=== PATIENT | female | born 2005 | race Caucasian/White ===

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

== ENCOUNTER → 2023-01-27 10:17 | Outpatient (BNVA) | payer BC, MEDICAID, SELFPAY | PROVIDERS: PCP Nurse Practitioner Women's Health; Visit Provider Obstetrics & Gynecology | DX: Z34.00 Encounter for supervision of normal first pregnancy, unspecified trimester (principal) | CPT/HCPCS: 81000 ==

== ENCOUNTER → 2023-02-11 10:04 | Outpatient (BNVA) | payer SELFPAY | PROVIDERS: PCP Nurse Practitioner Women's Health; Visit Provider Obstetrics & Gynecology | DX: Z34.00 Encounter for supervision of normal first pregnancy, unspecified trimester (principal) | CPT/HCPCS: 81000; 85025 ==

== ENCOUNTER → 2023-02-25 09:54 | Outpatient (BNVA) | payer SELFPAY | PROVIDERS: PCP Nurse Practitioner Women's Health; Visit Provider Obstetrics & Gynecology | DX: Z34.00 Encounter for supervision of normal first pregnancy, unspecified trimester (principal) | CPT/HCPCS: 81000 ==

== ENCOUNTER → 2023-03-11 10:03 | Outpatient (BNVA) | payer SELFPAY | PROVIDERS: PCP Nurse Practitioner Women's Health; Visit Provider Nurse Practitioner Women's Health | DX: Z34.00 Encounter for supervision of normal first pregnancy, unspecified trimester (principal) | CPT/HCPCS: 81000 ==

== ENCOUNTER 2023-03-15 22:32 | Outpatient (CLI) | payer MEDICAID, SELFPAY ==
[2023-03-15 22:20] VITALS: BMI 24.7
[2023-03-15 22:38] VITALS: BP 129/76; PULSE 126
[2023-03-15 23:08] VITALS: RESP 14
[2023-03-15 23:38] LABS: Bilirubin Urine Neg (Negative); Blood Urine Neg (Negative); Glucose Urine UA Norm (Normal); Ketones Urine Negative (Negative); Nitrate Urine Negative (Negative); Protein Urine Neg (Negative); Urine Appearance Hazy (CLEAR); Urine Color Yellow (Yellow); pH Urine 6 (5-7)
[2023-03-15 23:39] LABS: Bacteria Urine 1+ /hpf; Leukocyte Esterase Urine 2+ (Negative); RBC Urine 0-4 /hpf (0-2); Squamous Epithelial Cell Urine 15-25 /hpf (0-5); Urobilinogen Urine 1 mg/dL (Negative); WBC Urine 25-40 /hpf (0-5)
[2023-03-15 23:40] LABS: Add Urine Culture? No
[2023-03-16 00:13] VITALS: BP 105/59; PULSE 104
[2023-03-16 00:28] VITALS: BP 131/78; PULSE 106
[2023-03-16 00:35] VITALS: BP 131/78; PULSE 106; RESP 14; TEMP 36.4
== END 2023-03-16 00:30 | disposition home or self-care (01) ==
LOC: OPOB 22:33 → OBGYN 22:34
PROVIDERS: PCP Nurse Practitioner Women's Health; Visit Provider Obstetrics & Gynecology
DX: O26.899 Other specified pregnancy related conditions, unspecified trimester (principal); Z3A.00 Weeks of gestation of pregnancy not specified; M54.9 Dorsalgia, unspecified
CPT/HCPCS: 59025; 81001; 99211

== ENCOUNTER → 2023-03-25 08:30 | Outpatient (BNVA) | payer MEDICAID, SELFPAY | PROVIDERS: PCP Nurse Practitioner Women's Health; Visit Provider Obstetrics & Gynecology | DX: Z34.00 Encounter for supervision of normal first pregnancy, unspecified trimester (principal) | CPT/HCPCS: 81000; 87081 ==

== ENCOUNTER 2023-03-28 06:54 | Outpatient (CLI) | payer MEDICAID, SELFPAY ==
[2023-03-28 06:47] VITALS: BMI 25.0
[2023-03-28 07:18] VITALS: RESP 17
[2023-03-28 07:32] VITALS: BP 125/80; PULSE 97
[2023-03-28 07:48] VITALS: BP 119/71; PULSE 93
--- NOTE | 2023-03-28 09:14 | P.TNLD_ITS ---
OB L&D Triage Visit Information: Date of evaluation: 03/28/23 Comments/Additional reason(s) for visit: 17-year-old female at 36.4 weeks gestation and with complaints of contractions x1 hour. Patient denies leakage of fluid or vaginal bleeding. In review of her course it has been uneventful. EFM?category 1 Cervical exam?cervix 1/50%/-3 vertex unchanged after observation. Reviewed with patient through nursing staff contractions and labor, re turn to labor and delivery of leakage of fluid or vaginal bleeding or decreased movement. If pain increases with contractions more regular patient is to return to labor and delivery. Patient to keep her scheduled visit with her attending OB. Evaluation: monitor accelerations: Present 15x15 station: -3 Vital signs: Vital Signs - 24 hr 03/28/23 07:18 03/28/23 07:32 03/28/23 07:48 Pulse Rate 97 93 Respiratory Rate 17 Blood Pressure 125/80 119/71 Oxygen Delivery Me thod Room Air 03/28/23 07:18 Pulse Rate Respiratory Rate 17 Blood Pressure Oxygen Delivery Me thod Care ANGELA Calculator Estimated Delivery Date Method Current WG Current Estimate 04/21/23 LMP (Uncertain) 36w 4d Specific Issues/Plans * IRREGULAR CYCLES -- dating scan on 08/27/22-----> THIS WILL DATE THE * EATING DISORDER * ANXIETY/DEPRESSION--restarted Zoloft 50 mg at 16 weeks * LOW BMI Final Diagnosis Final Diagnosis (1) Irregular uterine contractions: Plan: Discharge patient to home, follow-up as scheduled with OB attending. Status: Acute Code(s): O47.9 - False labor, unspecified (2) with 36 completed weeks gestation: Status: Acute Code(s): Z3A.36 - 36 weeks gestation of Coding Level of Care Code Acute Code for Chg Fwd Diagnoses Irregular uterine contractions O47.9 with 36 completed weeks gestation Z3A.36
== END 2023-03-28 09:15 | disposition home or self-care (01) ==
LOC: OPOB 06:54 → OBGYN 06:55
PROVIDERS: PCP Nurse Practitioner Women's Health; Visit Provider Obstetrics & Gynecology
DX: O47.9 False labor, unspecified (principal); Z3A.36 36 weeks gestation of pregnancy
CPT/HCPCS: 59025; 99211

== ENCOUNTER → 2023-04-01 07:55 | Outpatient (BNVA) | payer MEDICAID, SELFPAY | PROVIDERS: PCP Nurse Practitioner Women's Health; Visit Provider Nurse Practitioner Women's Health | DX: Z34.00 Encounter for supervision of normal first pregnancy, unspecified trimester (principal) | CPT/HCPCS: 84315 ==

== ENCOUNTER → 2023-04-07 14:06 | Outpatient (BNVA) | payer BC, MEDICAID, SELFPAY | PROVIDERS: PCP Nurse Practitioner Women's Health; Visit Provider Nurse Practitioner Women's Health | DX: Z34.00 Encounter for supervision of normal first pregnancy, unspecified trimester (principal); F32.4 Major depressive disorder, single episode, in partial remission; F41.1 Generalized anxiety disorder; F41.0 Panic disorder [episodic paroxysmal anxiety]; F50.01 Anorexia nervosa, restricting type | CPT/HCPCS: 81000 ==

== ENCOUNTER 2023-04-09 00:29 | Inpatient (IN) | payer MEDICAID, SELFPAY ==
[2023-04-08] VITALS (16 sets, daily range): BP systolic 108–144; BP diastolic 67–92; PULSE 90–129; TEMP 36.1; O2SAT 97–98; BMI 25.7
[2023-04-09] VITALS (90 sets, daily range): BP systolic 99–164; BP diastolic 55–95; PULSE 83–133; RESP 15–16; TEMP 36.6–37.7; O2SAT 97
--- NOTE | 2023-04-09 01:10 | PM.OBGYHP ---
Providers/Chief Complaint Admitting Physician: Sunny Weiss MD Primary WARP TYING MACHINE KNOTTER: Larry Haji MD Primary Care Provider: IVAN [place] Chief Complaint: contractions HPI WARP TYING MACHINE KNOTTER History of Present Illness 17 y.o. G1 EDC 2022 At 38 w 2 d No complications Presented to L&D c/o painful UCs + active movements No bleeding or fluid leakage Present Details : 1 Para: 0 Labs Rubella: Immune RPR: Negative GBS: Negative Medications/Allergies Home Medications Medication Instructions Recorded Confirmed Last Taken Type PNV 153-FA 400 mcg-om3 35 mg-dha 1 tab PO DAILY 08/25/22 04/07/23 Unknown History 25 mg-epa 5 mg-fish oil chew tablet ( Gummies) ferrous sulfate 325 mg (65 mg 325 mg PO DAILY 12/31/22 04/07/23 Unknown History iron) tablet metoclopramide HCl 5 mg tablet 5 mg PO Q8H PRN heartburn #30 tabs 03/14/23 04/07/23 Unknown Rx (Reglan) Allergies Allergy/AdvReac Type Severity Reaction Status Date / Time No Known Allergies Allergy Verified 04/07/23 14:17 PFSH WARP TYING MACHINE KNOTTER PFSH: Medical History No pertinent past medical history neg dx: htn,dm,dvt/pe, thyroid PCP: None Surgical History No pertinent past surgical history Family History Grandmother Hypertension maternal Colon cancer age of dx 39, age of 40 Grandfather Hypertension maternal Stroke Denies family history of Ovarian cancer Diabetes Clotting disorder Bleeding disorder Uterine cancer Thyroid disease History History History 1 Term 0 Miscarriages/Ectopic Living Children Care ANGELA Calculator Estimated Delivery Date Method Current WG Current Estimate 04/21/23 LMP (Uncertain) 38w 2d Specific Issues/Plans IRREGULAR CYCLES -- dating scan on 08/27/22-----> THIS WILL DATE THE EATING DISORDER ANXIETY/DEPRESSION--restarted Zoloft 50 mg at 16 weeks LOW BMI Vitals/I&O/Wt Last Vital Signs Temp 98.1 F 04/09/23 04:00 Pulse 96 04/09/23 03:49 Resp 15 04/09/23 04:00 BP 116/66 04/09/23 03:49 Pulse Ox 98 04/08/23 22:53 O2 Del Method Room Air 04/09/23 04:00 Weight last 48 hrs Weight 145 lb Physical Exam Narrative: Weight 145 lbs; 5?3? VS normal FH 36 cm Cx: 3 cm / 100% / -2 / Vtx External monitor: regular [facility] heart tracing good variability, + accelerations Data 04/09/23 00:52 A&P Assessment and plan (1) Active labor at term: 38 w 2 d Active labor Plan admit Fetus reassuring Plan expectant management Attestations Medical Necessity Statement*: patient at 38 w 2 d with active labor Coding Level of Care Code Acute Code for Chg Fwd Diagnoses Active labor at term Time Spent (min) 60
[2023-04-09 01:34] LABS: Basophils # 0.1 10^3/uL (0.0-0.1); Basophils % 0.3 %; Eosinophils # 0.1 10^3/uL (0.0-0.8); Eosinophils % 0.3 %; Hematocrit 34.3 % (36-47); Lymphocytes # 2.1 10^3/uL (1.5-6.5); Mean Corpuscular HGB Conc 33.5 g/dL (30-55); Mean Corpuscular Hemoglobin 31.3 pg (27-33); Mean Corpuscular Volume 93.5 fl (85-98); Mean Platelet Volume 12.1 fL (7.4-10.4); Monocytes # 1.4 10^3/uL (0.2-0.9); Monocytes % 8.3 %; Neutrophils # 13.47 10^3/uL (1.8-8.0); Neutrophils % 78.3 %; Nucleated Red Blood Cells % 0 %; Platelet Count 280 10^3/cmm (157-399); Red Blood Count 3.67 10^6/uL (3.85-5.65); Red Cell Distribution Width 12.7 % (12.1-15.1)
[2023-04-09] MEDS: lactated ringers 1,000 ML 999 ML IV (06:41)
[2023-04-09] MEDS: ROPivacaine syringe 100 MG/50 ML SYRINGE 10 MG EPIDURAL ×4 (07:34→18:27)
[2023-04-09] MEDS: dextrose 5%-lactated ringers 1,000 ML 125 ML IV ×2 (07:44→15:48)
--- NOTE | 2023-04-09 08:18 | ANES.PREANE2 ---
Pre-Anesthetic Assessment Height/Weight: Height 1.6 m Weight 65.771 kg Temp Pulse Resp BP Pulse Ox O2 Del Method 97.9 F 102 H 15 113/71 97 Room Air 04/09/23 06:29 04/09/23 08:15 04/09/23 04:00 04/09/23 08:15 04/09/23 07:18 04/09/23 04:00 Epidural Familial anesthetic complications: None Was Beta Rain taken within 24 hours: N/A Was Clonidine taken within 24 hours: N/A Social No alcohol and No tobacco Exam alert, oriented x 3, clear to auscultation bilaterally and regular rate & rhythm Airway Mallampati: Class I Dentition: full Anesthetic Plan ASA status: 2 Anesthesia: Regional (specify below) Risk of > 500 ml blood loss (7ml/kg in children): No Medications/Allergies Home Medications Medication Instructions Recorded Confirmed Last Taken Type PNV 153-FA 400 mcg-om3 35 mg-dha 1 tab PO DAILY 08/25/22 04/07/23 Unknown History 25 mg-epa 5 mg-fish oil chew tablet ( Gummies) ferrous sulfate 325 mg (65 mg 325 mg PO DAILY 12/31/22 04/07/23 Unknown History iron) tablet metoclopramide HCl 5 mg tablet 5 mg PO Q8H PRN heartburn #30 tabs 03/14/23 04/07/23 Unknown Rx (Reglan) Allergies Allergy/AdvReac Type Severity Reaction Status Date / Time No Known Allergies Allergy Verified 04/07/23 14:17 Current Medications Generic Name Dose Route Start Last Admin Trade Name Freq PRN Reason Stop Dose Admin Dextrose/Lactated Ringer's 1,000 mls @ 125 mls/hr 04/09/23 01:00 04/09/23 07:44 Dextrose 5%-Lactated Ringers IV 125 mls/hr .Q8H CHAD Administration Lactated Ringer's 1,000 mls @ 999 mls/hr 04/09/23 06:30 04/09/23 06:41 Lactated Ringers IV 999 mls/hr .Q1H1M PRN Administration See label comments Ropivacaine 100 mg in 50 mls @ 10 mls/hr 04/09/23 06:30 04/09/23 07:34 Naropin Syringe EPIDURAL 10 mls/hr .Q5H CHAD Administration PFSH Anesthesia Medical History No pertinent past medical history neg dx: htn,dm,dvt/pe, thyroid PCP: None Surgical History No pertinent past surgical history Family History Grandmother Hypertension maternal Colon cancer age of dx 39, age of 40 Grandfather Hypertension maternal Stroke Denies family history of Ovarian cancer Diabetes Clotting disorder Bleeding disorder Uterine cancer Thyroid disease Female Reproductive History : 1 Data Anesthesia 04/09/23 00:52 Short CBC 04/09/23 Range/Units 00:52 WBC 17.20 H (4.5-13.0) 10^3/uL Hgb 11.50 L (12.4-14.8) g/dL Hct 34.3 L (36-47) % MCV 93.5 (85-98) fl Plt Count 280 (157-399) 10^3/cmm Neut % (Auto) 78.3 % Neut # (Auto) 13.47 H (1.8-8.0) 10^3/uL Cardiac Studies: No Data to Display
--- NOTE | 2023-04-09 08:19 | ANES.PROC ---
Anesthesia Procedures Procedure/Date: 04/09/23 Epidural: Time Out Performed: Yes Consents Signed: Procedure Consent Consent: requested by attending/covering physician, from patient, from other, risks and benefits reviewed and patient agrees to proceed Lumbar Level: L2-L3 Epidural position: sitting Epidural procedure: sterile prep of area, 1% lidocaine to numb the area, 18 g needle, negative for paresthesia passed, neg for paresthesia, test dose given, 1.5% xylocaine 1:200k epi (5), 0.2% Ropivacaine bolus ml (5), placed PCEA, no systemic response, sterile dressing applied, L.U.D. no apparent complications and 0.2% Ropiavacaine @ mls/hr (10) Additional Comments: CAMERON at 4 cm, threaded to 11 cm
[2023-04-09] MEDS: oxytocin 30 UNIT/500 ML BAG IV (11:10)
--- NOTE | 2023-04-09 17:36 | P.ANES_ITS ---
Anesthesia Procedures Procedure/Date: 04/09/23 Other Information: PLANNING ASSISTANT at bedside at 1735. bolus given viz epidural of 100mcg fentanyl and 4ml 0.25% bupivacaine at 1736. contractions easing up per patient.
--- NOTE | 2023-04-09 17:36 | ANES.PROC ---
Anesthesia Procedures Procedure/Date: 04/09/23 Other Information: VEHICLE OPERATOR TECHNICIAN at bedside at 1735. bolus given viz epidural of 100mcg fentanyl and 4ml 0.25% bupivacaine at 1736. contractions easing up per patient.
--- NOTE | 2023-04-09 19:40 | PM.OBGYPN ---
GRID CASTING MACHINE OPERATOR HELPER Subjective Subjective: Interval history: April 09, 2023, 194 Fetus reassuring Comfortable with epidural Cx: 7 cm / 90 % / +1 Labor: Station: +2 Amniotic Membrane Status: Ruptured Monitor Mode: External Contraction Pattern: Regular Vitals/I&O/Wt Last Vital Signs Temp 98.0 F 04/10/23 15:30 Pulse 93 04/10/23 15:30 Resp 16 04/10/23 15:30 BP 113/78 04/10/23 15:30 Pulse Ox 97 04/09/23 07:18 O2 Del Method Room Air 04/10/23 15:30 04/10/23 04/10/23 04/10/23 06:59 14:59 22:59 Output Total 650 / 750 Balance -650 / 403.000 Physical Exam Urinary Catheter Management: Chu Latex: Cath Placed During This Visit: yes, but has since been removed by the nurse Reason for Continuing Indwelling Catheter: Decision to DC Catheter Urinary Catheter Date of Insertion: 04/09/23 Urinary Catheter Time of Insertion: 08:12 Date Urinary Catheter Removed: 04/10/23 Time Urinary Catheter Discontinued: 20:58 Data 04/10/23 10:02 A&P Assessment and plan (1) Active labor at term: Attestations Medical Necessity Statement*: patient at 38 w 2 d, with active labor Coding Level of Care Code Acute Code for Chg Fwd Diagnoses Active labor at term Time Spent (min) 20
--- NOTE | 2023-04-09 20:02 | P.ANES_ITS ---
Anesthesia Procedures Procedure/Date: 04/09/23 Other Information: This CUTTER OPERATOR HELPER at bedside again at 1999. pt got relief from previous bolus for about 2 hours. hotspot still on patients left side, hip area. dosed epidural with 5ml of 2% lidocaine at 1999 and 2004 for a total of 10 ml.
--- NOTE | 2023-04-09 21:40 | P.PN_ITS ---
COMMUNICATION PROFESSOR Subjective Subjective: Interval history: April 09, 2023, 2139 DELIVERY NOTE , vigorous male infant Cord gases and blood obtained Normal placenta and cord Small 2 cm second-degree perineal laceration repaired EBL: 300 cc No complications Labor: Station: +2 Amniotic Membrane Status: Ruptured Monitor Mode: External Contraction Pattern: Regular Vitals/I&O/Wt Last Vital Signs Temp 98.0 F 04/10/23 15:30 Pulse 93 04/10/23 15:30 Resp 16 04/10/23 15:30 BP 113/78 04/10/23 15:30 Pulse Ox 97 04/09/23 07:18 O2 Del Method Room Air 04/10/23 15:30 04/10/23 04/10/23 04/10/23 06:59 14:59 22:59 Output Total 650 / 750 Balance -650 / 403.000 Physical Exam Urinary Catheter Management: Chu Latex: Cath Placed During This Visit: yes, but has since been removed by the nurse Reason for Continuing Indwelling Catheter: Decision to DC Catheter Urinary Catheter Date of Insertion: 04/09/23 Urinary Catheter Time of Insertion: 08:12 Date Urinary Catheter Removed: 04/10/23 Time Urinary Catheter Discontinued: 20:58 Data 04/10/23 10:02 A&P Assessment and plan (1) Vaginal delivery: Attestations Medical Necessity Statement*: patient at 38 weeks, s/p vaginal delivery Coding Level of Care Code Acute Code for Chg Fwd Diagnoses Vaginal delivery O80 Time Spent (min) 60
--- NOTE | 2023-04-09 21:40 | PM.DELIVERY ---
Delivery Note: Date of delivery: April 09, 2023 Pre-delivery diagnoses: 38 w 2 d active labor Post-delivery diagnoses: vaginal delivery second-degree perineal laceration Procedure: pitocin augmentation vaginal delivery repair of second-degree perineal laceration Op report anesthesia: Epidural Delivering Physician: Sunny Weiss MD Estimated blood loss (mL): 300 Findings: , vigorous male Cord gases and blood obtained Normal placenta and cord Small 2 cm second-degree perineal laceration repaired EBL: 300 cc No complications Delivery: vaginal delivery Post-Delivery Status: stable History History History 1 Term 0 Miscarriages/Ectopic Living Children A&P Assessment and plan (1) Vaginal delivery: plan care Coding Level of Care Code Acute Code for Chg Fwd Diagnoses Vaginal delivery O80 Time Spent (min) 60
[2023-04-09] MEDS: ibuprofen 800 mg tablet PO (22:12)
[2023-04-10] VITALS (12 sets, daily range): BP systolic 112–131; BP diastolic 55–87; PULSE 87–122; RESP 16–18; TEMP 36.7–37.4; O2SAT 97
[2023-04-10] MEDS: benzocaine-menthol 78 gm Canister 1 SPRAY TOPICAL (01:32)
[2023-04-10] MEDS: lanolin oint 7 gm 1 APPLIC TOPICAL (01:32)
[2023-04-10] MEDS: docusate sodium 100 mg Capsule PO ×2 (09:59→20:23)
[2023-04-10] MEDS: ibuprofen 800 mg tablet PO ×3 (10:00→20:23)
[2023-04-10] MEDS: prenatal vitamin Capsule 1 CAP PO (10:00)
[2023-04-10 10:25] LABS: Hematocrit 32.8 % (36-47); Mean Corpuscular Hemoglobin 30.7 pg (27-33); Mean Corpuscular Volume 95.9 fl (85-98); Mean Platelet Volume 11.6 fL (7.4-10.4); Platelet Count 262 10^3/cmm (157-399); Red Blood Count 3.42 10^6/uL (3.85-5.65); Red Cell Distribution Width 12.8 % (12.1-15.1); White Blood Count 17.24 10^3/uL (4.5-13.0)
--- NOTE | 2023-04-10 12:25 | PM.OBGYPN ---
METAL PATTERN MAKER Subjective Subjective: Interval history: no c/o no headaches, dizziness, nausea, abdominal pain, bleeding normal lochia mild perineal pain, relieved with pain meds eating, voiding, ambulating well Labor: Station: +2 Amniotic Membrane Status: Ruptured Monitor Mode: External Contraction Pattern: Regular Vitals/I&O/Wt Last Vital Signs Temp 98.0 F 04/10/23 15:30 Pulse 93 04/10/23 15:30 Resp 16 04/10/23 15:30 BP 113/78 04/10/23 15:30 Pulse Ox 97 04/09/23 07:18 O2 Del Method Room Air 04/10/23 15:30 04/10/23 04/10/23 04/10/23 06:59 14:59 22:59 Output Total 650 / 750 Balance -650 / 403.000 Physical Exam Narrative: afebrile, VS normal comfortable, awake, alert Lungs: clear Cor: RRR Abd: soft, nontender. fundus firm Ext: no edema; nontender Urinary Catheter Management: Chu Latex: Cath Placed During This Visit: yes, but has since been removed by the nurse Reason for Continuing Indwelling Catheter: Decision to DC Catheter Urinary Catheter Date of Insertion: 04/09/23 Urinary Catheter Time of Insertion: 08:12 Date Urinary Catheter Removed: 04/10/23 Time Urinary Catheter Discontinued: 20:58 Data 04/10/23 10:02 A&P Assessment and plan (1) Vaginal delivery: PPD #1 doing well normal course continue care Attestations Medical Necessity Statement*: patient s/p vaginal delivery, day #1 Coding Level of Care Code Acute Code for Chg Fwd Diagnoses Vaginal delivery O80 Time Spent (min) 20
[2023-04-11 04:50] VITALS: BP 128/81; PULSE 79; RESP 16; TEMP 37; O2SAT 97
[2023-04-11] MEDS: docusate sodium 100 mg Capsule PO (10:06)
[2023-04-11] MEDS: ibuprofen 800 mg tablet PO (10:06)
[2023-04-11] MEDS: prenatal vitamin Capsule 1 CAP PO (10:06)
[2023-04-11 10:15] VITALS: BP 115/78; PULSE 101; RESP 16; TEMP 36.8
--- NOTE | 2023-04-11 13:10 | P.PN_ITS ---
SOLDER MAKING SUPERVISOR Subjective Subjective: Interval history: no c/o no bleeding, pain eating, voiding, ambulating well caring for without any problems Labor: Station: +2 Amniotic Membrane Status: Ruptured Monitor Mode: External Contraction Pattern: Regular Vitals/I&O/Wt Last Vital Signs Temp 98.4 F 04/11/23 14:00 Pulse 80 04/11/23 14:00 Resp 16 04/11/23 14:00 BP 138/69 04/11/23 14:00 Pulse Ox 97 04/11/23 04:50 O2 Del Method Room Air 04/11/23 04:50 Physical Exam Narrative: afebrile, VS normal comfortable, awake, alert Lungs: clear Cor: RRR Abd: soft, nontender. fundus firm Ext: no edema; nontender Urinary Catheter Management: Chu Latex: Cath Placed During This Visit: yes, but has since been removed by the nurse Reason for Continuing Indwelling Catheter: Decision to DC Catheter Urinary Catheter Date of Insertion: 04/09/23 Urinary Catheter Time of Insertion: 08:12 Date Urinary Catheter Removed: 04/10/23 Time Urinary Catheter Discontinued: 20:58 Data 04/10/23 10:02 A&P Assessment and plan (1) Vaginal delivery: PPD #2 doing well discharge home today instructions and precautions given call/return if fever, chills, headache, blurry vision, nausea, vomiting, abdominal pain; vaginal bleeding or discharge; shortness of breath, chest pain, leg pains or swelling; inability to void, perineal pain or swelling; feelings of depression or mood changes; thoughts of suicide or harming others; inability to care for baby. f/u in 6 weeks or PRN Attestations Medical Necessity Statement*: patient s/p , plan discharge home today Coding Level of Care Code Acute Code for Chg Fwd Diagnoses Vaginal delivery O80 Time Spent (min) 20
--- NOTE | 2023-04-11 13:10 | PM.OBGYDC ---
Discharge Providers OXYACETYLENE TORCH OPERATOR Date of Admission: 04/09/23 00:29 Date of Discharge: 04/11/23 Attending Provider at Admission: Sunny Weiss MD Attending Provider at Discharge: Sunny Weiss MD Consults: none Primary OXYACETYLENE TORCH OPERATOR: Larry Haji MD Primary Care Provider: IVAN [place] Diagnoses at Discharge Discharge Diagnosis (1) Vaginal delivery: Details from hospital stay: patient admitted at 38 weeks with active labor received pitocin augmentation of labor had vaginal delivery with repair of second-degree perineal laceration normal course Status: Acute Reason for Visit Reason for Visit: contractions Hospital Course Hospital Course patient admitted at 38 weeks with active labor received pitocin augmentation of labor had vaginal delivery with repair of second-degree perineal laceration normal course Information Peripartum Data: Delivery Method: Vaginal Laceration description: Perineal - 2nd Degree Episiotomy description: None complications: none Physical Exam Narrative: afebrile, VS normal comfortable, awake, alert Lungs: clear Cor: RRR Abd: soft, nontender. fundus firm Ext: no edema; nontender Urinary Catheter Management: Chu Latex: Cath Placed During This Visit: yes, but has since been removed by the nurse Reason for Continuing Indwelling Catheter: Decision to DC Catheter Urinary Catheter Date of Insertion: 04/09/23 Urinary Catheter Time of Insertion: 08:12 Date Urinary Catheter Removed: 04/10/23 Time Urinary Catheter Discontinued: 20:58 History History History 1 Term 0 Miscarriages/Ectopic Living Children Discharge Data Studies Completed and Pending Laboratory Results WBC 17.24 10^3/uL (4.5-13.0) H 04/10/23 10:02 RBC 3.42 10^6/uL (3.85-5.65) L 04/10/23 10:02 Hgb 10.50 g/dL (12.4-14.8) L 04/10/23 10:02 Hct 32.8 % (36-47) L 04/10/23 10:02 MCV 95.9 fl (85-98) 04/10/23 10:02 MCH 30.7 pg (27-33) 04/10/23 10:02 MCHC 32.0 g/dL (30-55) 04/10/23 10:02 RDW 12.8 % (12.1-15.1) 04/10/23 10:02 Plt Count 262 10^3/cmm (157-399) 04/10/23 10:02 MPV 11.6 fL (7.4-10.4) H 04/10/23 10:02 Neut % (Auto) 78.3 % 04/09/23 00:52 Lymph % (Auto) 12.0 % 04/09/23 00:52 [place] % (Auto) 8.3 % 04/09/23 00:52 Eos % (Auto) 0.3 % 04/09/23 00:52 Baso % (Auto) 0.3 % 04/09/23 00:52 Neut # (Auto) 13.47 10^3/uL (1.8-8.0) H 04/09/23 00:52 Lymph # (Auto) 2.1 10^3/uL (1.5-6.5) 04/09/23 00:52 [place] # (Auto) 1.4 10^3/uL (0.2-0.9) H 04/09/23 00:52 Eos # (Auto) 0.1 10^3/uL (0.0-0.8) 04/09/23 00:52 Baso # (Auto) 0.1 10^3/uL (0.0-0.1) 04/09/23 00:52 Nucleated RBC % (auto) 0 % 04/09/23 00:52 Nucleated RBCs # 0.0 /100WBC 04/09/23 00:52 Procedures Performed pitocin augmentation of labor vaginal delivery repair of second-degree perineal laceration Vitals Last Vital Signs Temp 98.4 F 04/11/23 14:00 Pulse 80 04/11/23 14:00 Resp 16 04/11/23 14:00 BP 138/69 04/11/23 14:00 Pulse Ox 97 04/11/23 04:50 O2 Del Method Room Air 04/11/23 04:50 Discharge Plan Discharge Patient Disposition: Home Condition: Stable Prescriptions: Continued Gummies 400 mcg-35 mg- 25 mg-5 mg tablet,chewable 1 tab PO DAILY ferrous sulfate 325 mg (65 mg iron) tablet 325 mg PO DAILY metoclopramide HCl [Reglan] 5 mg tablet 5 mg PO Q8H PRN (Reason: heartburn) Qty: 30 0RF Discharge Orders: Discharge Order (Routine); Ordered 04/11/23 Ordered By: Sunny Weiss Referrals: Larry Haji MD [Physician] - 05/20/23 1:15 pm (Patient to see Dr. Haji for six week check up on May, at 1:15 P.M.) Discharge Diet: Usual diet Discharge Activity: Increase activity as tolerated Patient Instructions: Depression (DC), Bleeding (DC), Preeclampsia and Eclampsia After Delivery (GEN), Hemorrhage (DC), OB Discharge Report, OB Food/Drug Interaction Guide, OB Care at Home, Opioid Safety, OB Home Care, OB Vaginal Deliveries - [facility] Activity Restrictions/Additional Instructions: TAKE OVER THE COUNTER IBUPROFEN AND TYLENOL NEEDED FOR PAIN. ALSO TAKE AN OVER THE COUNTER STOOL SOFTENER TWICE A DAY, ADD MIRALAX IF STILL NOT HAVING REGULAR SOFT STOOLS OR BECOMING CONSTIPATED. Discharge Attestations OXYACETYLENE TORCH OPERATOR Time Spent in Discharge Care*: less than 30 min Coding Level of Care Code Acute Code for Chg Fwd Diagnoses Vaginal delivery O80 Time Spent (min) 20
[2023-04-11 14:00] VITALS: BP 138/69; PULSE 80; RESP 16; TEMP 36.9
--- NOTE | 2023-04-11 14:15 | ANE.PACU2 ---
Inpatient post-anesthesia follow up: Airway intact: Yes Vital signs: Temperature 98.3 F Pulse Rate 101 Respiratory Rate 16 Blood Pressure 115/78 Pulse Oximetry 97 Oxygen Delivery Me thod Room Air Oxygen Flow Rate Fraction of Inspir ed Oxygen Hydration adequate: Yes Nausea and vomiting: No Pain level: 2 Mental status: Baseline Additional Comments: Anes start 04/09/23 2711 Anes end 04/09/23 6119
== END 2023-04-11 14:10 | disposition home or self-care (01) | DRG 807 ==
LOC: OPOB 00:29 → OBGYN 00:29
PROVIDERS: Admitting Provider Obstetrics & Gynecology; PCP Nurse Practitioner Women's Health; Visit Provider Obstetrics & Gynecology
DX: O70.1 Second degree perineal laceration during delivery (principal); Z37.0 Single live birth; Z3A.38 38 weeks gestation of pregnancy
CPT/HCPCS: 36415; 51702; 59025; 59409; 85025; 85027; 96374; 99211; J2590; J2795; J3010; J3490; J7120; J7121

== ENCOUNTER 2023-09-19 08:03 | Outpatient (CLI) | payer MEDICAID, SELFPAY ==
--- NOTE | 2023-09-19 08:09 | US_ITS ---
WS: [id number] ULTRASOUND RIGHT BREAST HISTORY: AXILLA MASS COMPARISON: None available. TECHNIQUE: 2-D and Doppler. Ultrasound is directed to the RIGHT axilla in the area of palpable abnormality. There is no underlyin g mass identified. No shadowing. There is a tiny normal lymph node in the axilla. IMPRESSION: US/US breast RT limited* [id number] BI-RADS: 1-Negative FOLLOW-UP: See Report No ultrasound abnormality in the RIGHT axilla.
== END 2023-09-19 08:04 | disposition home or self-care (01) ==
LOC: RAD 08:03
PROVIDERS: PCP Nurse Practitioner Women's Health; Visit Provider Nurse Practitioner Family
DX: R22.2 Localized swelling, mass and lump, trunk (principal)
CPT/HCPCS: 76642

== ENCOUNTER 2023-09-23 13:55 | Outpatient (CLI) | payer MEDICAID, SELFPAY ==
--- NOTE | 2023-09-23 14:00 | USCV_ITS ---
Dottie Mcpherson Age: 17 Gender: F : 2005 Exam Date: 09/23/2023 14:20 Ordering Phys: Yi BoyerP SUPERVISOR STERILE PROCESSING Technologist: Caesar Glaser [place] [facility] [place]: rt arm pain PROCEDURES: Venous duplex imaging was performed in only the right upper extremity. The following venous structures were evaluated: internal jugular vein, subclavian vein, axillary vein, and brachial veins. In addition, the basilic vein, cephalic vein, radial vein, and ulnar vein. Serial compression, augmentation maneuvers, and spectral Doppler flow evaluation were performed. FINDINGS: No evidence of deep vein thrombosis or superficial thrombophlebitis in the right upper extremity. CONCLUSIONS No evidence of thrombus of the right upper extremity veins. Giancarlo Soliman MD (Electronically Signed) Final Date: 26 September 2023 09:29 S
== END 2023-09-23 13:56 | disposition home or self-care (01) ==
LOC: RAD 13:56
PROVIDERS: PCP Nurse Practitioner Women's Health; Visit Provider Nurse Practitioner Family
DX: M79.601 Pain in right arm (principal)
CPT/HCPCS: 93971

== ENCOUNTER 2023-09-29 10:08 | Outpatient (CLI) | payer MEDICAID, SELFPAY ==
--- NOTE | 2023-09-29 10:13 | MR_ITS ---
WS: [id number] MRI RIGHT SHOULDER HISTORY: PAIN IN R ARM, palpable nodule. COMPARISON: Ultrasound 09/19/2023. Prior MRI shoulder 09/02/2020 TECHNIQUE: Multiplanar sequences of the shoulder joint are submitted. Marker is placed along the anterior upper chest at the palpable and painful site. There is no underly ing mass identified. Prominent fat deposition but no discrete mass or lipoma. There is no signal abno rmality or change. Benign lymph nodes in the RIGHT axilla are identified. IMPRESSION: Negative MRI RIGHT shoulder with attention to the palpable soft tissue mass. This palpable area appea rs to be fatty deposition. There is no discrete identifiable mass.
== END 2023-09-29 10:09 | disposition home or self-care (01) ==
LOC: RAD 10:09
PROVIDERS: PCP Nurse Practitioner Women's Health; Visit Provider Nurse Practitioner Family
DX: M79.601 Pain in right arm (principal); R22.9 Localized swelling, mass and lump, unspecified
CPT/HCPCS: 73221; 99204

== ENCOUNTER 2023-10-11 11:21 | Day surgery (SDC) | payer MEDICAID, SELFPAY ==
[2023-10-11] VITALS (11 sets, daily range): BP systolic 91–133; BP diastolic 57–86; PULSE 83–103; RESP 13–20; TEMP 36.3–37.6; O2SAT 98–100; BMI 23.0
[2023-10-11] MEDS: scopolamine 1.5 Patch 1 PATCH TRANSDERMA (11:57)
[2023-10-11] MEDS: sodium chloride 0.9% 1,000 ML 30 ML IV (12:00)
--- NOTE | 2023-10-11 12:41 | W.PM.OPSUD ---
Surgery/Procedure H&P Update DATE OF PROCEDURE: October 11, 2023 DATE H&P PERFORMED: 09/29/23 H&P UPDATE INFORMATION: I have reviewed H&P completed within last 30 days, I have examined patient prior to procedure and No changes to prior documentation PLANNED PROCEDURE: Operation Date: 10/11/23 13:05 Proposed Procedures p Excision Mass/Lesion/Cyst Upper Torso/He Excision Mass/Lesion/Cyst Axilla(Right) - Gavino Barton DO
--- NOTE | 2023-10-11 13:24 | ANES.PREANE2 ---
Pre-Anesthetic Assessment Height/Weight: Height 1.6 m Weight 58.967 kg Temp Pulse Resp BP Pulse Ox O2 Del Method 97.4 F L 83 18 118/85 98 Room Air 10/11/23 11:43 10/11/23 11:43 10/11/23 11:43 10/11/23 11:57 10/11/23 11:43 10/11/23 11:48 Operation Date: 10/11/23 13:05 Proposed Procedures p Excision Mass/Lesion/Cyst Upper Torso/He Excision Mass/Lesion/Cyst Axilla(Right) - Gavino Barton DO Familial anesthetic complications: none Was Beta Rain taken within 24 hours: N/A Was Clonidine taken within 24 hours: N/A Last intake: Intake Last Liquid Date 10/10/23 Last Liquid Time 23:30 Last Solid Date 10/10/23 Last Solid Time 23:30 Social No alcohol and No tobacco Exam alert, oriented x 3, clear to auscultation bilaterally and regular rate & rhythm Airway Submandibular: within normal limits Cervical ROM: within normal limits Mallampati: Class II Dentition: full History/ROS No significant history except as noted Neuropsych Anxiety and Depression Anesthetic Plan ASA status: 1 Anesthesia: General Medications/Allergies Home Medications Medication Instructions Recorded Confirmed Last Taken Type medroxyprogesterone 150 mg/mL 150 mg IM ONCE Contraception, 05/20/23 10/10/23 08/22/23 Rx intramuscular syringe abnormal uterine bleeding, (Depo-Provera) endometriosis #1 mL Allergies Allergy/AdvReac Type Severity Reaction Status Date / Time No Known Allergies Allergy Verified 09/29/23 13:36 Current Medications Generic Name Dose Route Start Last Admin Trade Name Benq PRN Reason Stop Dose Admin Sodium Chloride 1,000 mls @ 30 mls/hr 10/11/23 11:30 10/11/23 12:00 Sodium Chloride 0.9% IV 10/12/23 11:29 30 mls/hr .Q24H CHAD Administration PFSH Anesthesia Medical History Active labor at term No pertinent past medical history neg dx: htn,dm,dvt/pe, thyroid PCP: None Surgical History No pertinent past surgical history Family History Grandmother Hypertension maternal Colon cancer age of dx 39, age of 40 Grandfather Hypertension maternal Stroke Denies family history of Ovarian cancer Diabetes Clotting disorder Bleeding disorder Uterine cancer Thyroid disease Social History Smoking and tobacco/nicotine status: never used tobacco/nicotine Data Anesthesia Cardiac Studies: No Data to Display
[2023-10-11 13:52] LABS: OR HCG Qualitative Urine Negative (Negative)
[2023-10-11] MEDS: ceFAZolin 2,000 MG in sodium chloride 0.9% (plus) 50 ML 100 MG IV (13:58)
[2023-10-11] MEDS: lidocaine-epi 2% PF 1:200,000 20 mL SDV XX (14:26)
--- NOTE | 2023-10-11 14:47 | PM.OP ---
Operative Report Date of procedure: October 11, 2023 Pre-op diagnosis: Subcutaneous mass right axilla Post-op diagnosis: same Procedure done: Excision of skin and subcutaneous tissue right axilla Implants: None Specimens removed/disposition: Elliptical excision of skin and lipomatous subcutaneous tissue right axilla Surgeon: Gavino Barton DO Anesthesia: General and Local Estimated blood loss (mL): 5 Complications: None apparent Brief History: This is a very pleasant 17-year-old female who has a painful and enlarging subcutaneous mass in her right axilla. This is causing pain and numbness in her axilla along with excessive sweating. This has been growing larger and the pain has been getting worse. She desired excision. The risk and benefits were explained and documented. Procedure: Patient was wheeled operative room placed on the OR table in supine position. The right axilla was inspected prepped and draped usual sterile fashion. General tracheal ovation was achieved by the part of anesthesia. A timeout was performed. All present were in agreement. Lidocaine with epinephrine was used to anesthetize the skin overlying the right axilla. The lateral incision was straight and made along the right axillary crease for 10.5 cm. A semicircular incision was then made medially with of 3.5 cm in order to take extra skin. Incision was done with a 10 blade scalpel. Electrocautery was then used to incise the fascia and cut mode and then a lipomatous mass subcutaneous tissue was totally excised using electrocautery. There was minimal blood loss. Specimen was removed whole and measured 10.5 x 3.5 x 5 cm. Specimen was passed off and permanent formalin. Hemostasis was achieved with electrocautery. Dermis was approximated with 3-0 Vicryl in a interrupted subcuticular fashion. Skin was closed with 4-0 Monocryl in a running subcuticular fashion. Dermabond was applied. Patient tolerated procedure well.
--- NOTE | 2023-10-11 15:48 | ANE.PACU2 ---
Inpatient post-anesthesia follow up: Airway intact: Yes Vital signs: Temperature 97.4 F Pulse Rate 99 Respiratory Rate 20 Blood Pressure 91/57 Pulse Oximetry 100 Oxygen Delivery Me thod Oxymask Oxygen Flow Rate 6 Fraction of Inspir ed Oxygen Hydration adequate: Yes Nausea and vomiting: No Pain level: 2 Mental status: Baseline
--- NOTE | 2023-10-11 15:58 | PC.NURSE ---
1558 - Dr Rizvi at side - reported pt temp of 99.7 - pacu arrival temp of 97.4
[2023-10-11] MEDS: HYDROcodone-acetaminophen 7.5-325 mg Tablet 1 TAB PO (16:45)
== END 2023-10-11 17:10 | disposition home or self-care (01) ==
PROVIDERS: Anesthesiology; PCP Nurse Practitioner Family; Visit Provider Surgery
PROC: (CPT 11406; principal; 2023-10-11 12:55)
DX: D17.21 Benign lipomatous neoplasm of skin and subcutaneous tissue of right arm (principal)
CPT/HCPCS: 11406; 12034; 81025; 84703; 88307; J0690; J1100; J1200; J1885; J2405; J3010; J7030

== ENCOUNTER → 2023-10-27 14:57 | Outpatient (BNVA) | payer MEDICAID, SELFPAY | PROVIDERS: PCP Nurse Practitioner Family; Visit Provider Surgery | DX: Z98.890 Other specified postprocedural states (principal); Z87.2 Personal history of diseases of the skin and subcutaneous tissue | CPT/HCPCS: 99214 ==

== ENCOUNTER → 2023-12-02 08:00 | Outpatient (BNVA) | payer MEDICAID, SELFPAY | PROVIDERS: PCP Nurse Practitioner Family; Visit Provider Family Medicine Adult Medicine | DX: R39.9 Unspecified symptoms and signs involving the genitourinary system (principal) | CPT/HCPCS: 81000 ==

== ENCOUNTER 2024-02-09 17:17 | Emergency (ER) | payer OTHER, MEDICAID, SELFPAY ==
[2024-02-09 17:38] VITALS: BP 126/82; PULSE 79; RESP 18; TEMP 36.7
--- NOTE | 2024-02-09 17:51 | ED_ITS ---
HPI - Burn/Smoke Inhalation General: Chief complaint: Burn/Smoke Inhalation Stated complaint: leg pain both legs Time Seen by Provider: 02/09/24 17:43 History of Present Illness: 18-year-old female presents to the [facility] ency room was complaining of sunburn particularly on her legs. Began 4 days ago she has some peeling on her forehead. She has not had any blistering. No fever sweats or chills Associated symptoms: Deny chest pain, fever(s) or neck pain Review of Systems Const: Denies: fever(s) or chills Card: Denies: chest pain Resp: Denies: dyspnea GI: Denies: abdominal pain : Denies: dysuria, urinary frequency or urinary urgency Musc: Denies: neck pain or back pain Skin/Breast: Denies: rash PFSH ED PFSH: Medical History UTI (urinary tract infection) Active labor at term No pertinent past medical history neg dx: htn,dm,dvt/pe, thyroid PCP: None Surgical History No pertinent past surgical history Family History Grandmother Hypertension maternal Colon cancer age of dx 39, age of 40 Grandfather Hypertension maternal Stroke Denies family history of Ovarian cancer Diabetes Clotting disorder Bleeding disorder Uterine cancer Thyroid disease Social History Smoking and tobacco/nicotine status: never used tobacco/nicotine Alcohol intake: never Physical Exam Const: COMMON NORMALS: no acute distress GENERAL APPEARANCE: cooperative and comfortable ORIENTATION/CONSCIOUSNESS: Yes awake, Yes oriented to person, Yes oriented to place and Yes oriented to time HENMT: COMMON NORMALS: normocephalic, atraumatic and hearing grossly normal bilaterally HEAD & SCALP: normocephalic and atraumatic Resp: COMMON NORMALS: normal respiratory effort and No retractions Extremity: COMMON NORMALS: normal to inspection, capillary refill normal, no clubbing, cyanosis or edema, no calf tenderness and no pedal edema Neuro: SENSORIUM/ORIENTATION: Yes oriented to person, Yes oriented to place and Yes oriented to time Skin: OTHER: First-degree sunburn on anterior extremities and face Course Vital Signs: Vital signs: Vital Signs Temperature 98.0 F 02/09/24 18:13 Pulse Rate 79 02/09/24 18:13 Respiratory Rate 18 02/09/24 18:13 Blood Pressure 126/82 02/09/24 18:13 MDM - Burn/Smoke Inhalation Medical Decision Making First-degree sunburn treat with topical lidocaine. Give tramadol to use as needed follow-up as needed No radiology studies performed this visit Discharge Plan Discharge Patient Disposition: Home Clinical Impression: Sunburn Condition: Stable Prescriptions: New lidocaine 5 % cream 1 applic topical TID PRN (Reason: pain) Qty: 30 0RF tramadol 50 mg tablet 50 mg PO Q6H PRN (Reason: pain) Qty: 10 0RF No Action medroxyprogesterone [Depo-Provera] 150 mg/mL syringe 150 mg IM ONCE Qty: 1 3RF nitrofurantoin macrocrystal 100 mg capsule 100 mg PO BID Qty: 10 0RF Rx Instructions: must administer with a meal/food Discharge Orders: Discharge ED (Routine); Ordered 02/09/24 Ordered By: Jagdish Bass Referrals: Yi Boyer FNP [Primary Care Provider] - Discharge Diet: Usual diet Discharge Activity: Increase activity as tolerated Patient Instructions: Sunburn (ED), Opioid Safety, Pain Management Activity Restrictions/Additional Instructions: Thank you for choosing [facility] for your healthcare needs today. It is very important that you follow up as instructed or that you return to the Emergency Department should you have concerns or if your condition changes or worsens in any way. Coding Level of Care Code ED Telecom Sales Consultant for Lorna Montana
[2024-02-09 18:13] VITALS: BP 126/82; PULSE 79; RESP 18; TEMP 36.7
== END 2024-02-09 18:08 | disposition home or self-care (01) ==
PROVIDERS: Emergency Provider Family Medicine; PCP Nurse Practitioner Family
DX: L55.0 Sunburn of first degree (principal)
CPT/HCPCS: 99283

== ENCOUNTER → 2025-01-30 15:48 | Outpatient (BNVA) | payer OTHER, SELFPAY | PROVIDERS: PCP Nurse Practitioner Family; Visit Provider Nurse Practitioner Women's Health | DX: Z01.419 Encounter for gynecological examination (general) (routine) without abnormal findings (principal) | CPT/HCPCS: 88175 ==

== ENCOUNTER → 2025-03-12 14:54 | Outpatient (BNVA) | payer OTHER, SELFPAY | PROVIDERS: PCP Nurse Practitioner Family; Visit Provider Family Medicine | DX: F45.41 Pain disorder exclusively related to psychological factors (principal) | CPT/HCPCS: 85025 ==

== ENCOUNTER → 2025-03-14 12:36 | Outpatient (BNVA) | payer OTHER, SELFPAY | PROVIDERS: PCP Family Medicine; Visit Provider Family Medicine | DX: F45.41 Pain disorder exclusively related to psychological factors (principal) | CPT/HCPCS: 85025; 85651; 86140 ==

== ENCOUNTER → 2025-03-21 12:13 | Outpatient (BNVA) | payer OTHER, SELFPAY | PROVIDERS: PCP Family Medicine; Visit Provider Family Medicine | DX: E04.9 Nontoxic goiter, unspecified (principal); D64.9 Anemia, unspecified; E05.90 Thyrotoxicosis, unspecified without thyrotoxic crisis or storm | CPT/HCPCS: 82607; 83540; 84439; 84443; 84481 ==

== ENCOUNTER 2025-03-22 08:06 | Outpatient (CLI) | payer OTHER, SELFPAY ==
--- NOTE | 2025-03-22 14:15 | US_ITS ---
WS: [id number] THYROID ULTRASOUND HISTORY: Goiter COMPARISON: None available. Right lobe: 1.4 cm x 1.3 cm x 4.2 cm (w x ap x l). Volume: 3.6 cm3. Normal sized thyroid. Heterogeneous appearance of the thyroid. There are a few fibers echogenic septations. No discrete nodule. No increased vascularity. Left lobe: 1.6 cm x 1.6 cm x 4.9 cm (w x ap x l). Volume: 5.8 cm3. Normal sized thyroid. Nodule contour of the gland with echogenic fibrous septations. There is no discrete mass or increased vascularity. Isthmus: 0.5 cm. US/US thyroid [id number] IMPRESSION: 1. Heterogeneous thyroid without increased vascularity and no discrete nodules . This can be seen with prior Ashley's thyroiditis. 2. No thyroid nodule for biopsy.
== END 2025-03-22 08:07 | disposition home or self-care (01) ==
LOC: RAD 08:09
PROVIDERS: PCP Family Medicine; Visit Provider Family Medicine
DX: E04.9 Nontoxic goiter, unspecified (principal); E07.9 Disorder of thyroid, unspecified
CPT/HCPCS: 76536; 83516

== ENCOUNTER 2025-06-19 16:45 | Emergency (ER) | payer OTHER, SELFPAY ==
[2025-06-19 16:48] VITALS: BP 116/77; PULSE 92; RESP 16; TEMP 36.7; O2SAT 96; BMI 19.7
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
[2025-06-19 18:28] VITALS: PULSE 87; O2SAT 100
== END 2025-06-19 18:29 | disposition home or self-care (01) ==
PROVIDERS: Emergency Provider Emergency Medicine; PCP Family Medicine
DX: M25.561 Pain in right knee (principal); S80.02XA Contusion of left knee, initial encounter; S80.01XA Contusion of right knee, initial encounter; V89.2XXA Person injured in unspecified motor-vehicle accident, traffic, initial encounter
CPT/HCPCS: 73562; 99283